=== PATIENT | male | born 1970 | race Caucasian/White ===

== ENCOUNTER 2018-02-05 16:53 | Emergency (ER) | payer OTHER ==
[2018-02-05] MEDS: HYDROCODONE/APAP (5/325) TAB PO ×2 (17:22→18:01)
[2018-02-05] MEDS ORDERED: IBUPROFEN 600 MG TAB PO (17:30)
[2018-02-05] MEDS ORDERED: morphine 4 MG/ML VIAL IM (17:58)
[2018-02-05] MEDS ORDERED: HYDROCODONE/APAP (10/325) TAB PO (18:00)
[2018-02-05] MEDS: morphine 4 MG/ML VIAL IM (18:06)
== END 2018-02-05 21:30 | disposition home or self-care (01) ==
LOC: FTE 16:53
DX: S62.324A Displaced fracture of shaft of fourth metacarpal bone, right hand, initial encounter for closed fracture (principal); S63.061A Subluxation of metacarpal (bone), proximal end of right hand, initial encounter; W22.8XXA Striking against or struck by other objects, initial encounter; Y92.9 Unspecified place or not applicable
CPT/HCPCS: 26700; 73130-RT; 96372; 99284-25

== ENCOUNTER 2018-02-16 17:42 | Emergency (ER) | payer OTHER | END 2018-02-16 19:16 | disposition home or self-care (01) | LOC: E/R 17:42 | DX: S99.911D Unspecified injury of right ankle, subsequent encounter (principal); W22.8XXD Striking against or struck by other objects, subsequent encounter; Y92.9 Unspecified place or not applicable | CPT/HCPCS: 29125; 73130-RT; 99283-25 ==